=== PATIENT | female | born 1945 | race African-American/Black ===

== ENCOUNTER 2020-01-19 04:37 | Day surgery (SDC) | payer OTHER, BC ==
--- OUTSIDE RECORDS SUMMARY | 2020-01-18 10:39 | XMS ---
:1945 [facility] Care Team Providers Name Role Phone Jose Olson Unavailable Jose Olson Unavailable Re-disclosure Warning The records that you are about to access may contain information from federally- assisted alcohol or drug abuse programs. If such information is present, then the following federally mandated warning applies: This information has been disclosed to you from records protected by federal confidentiality rules (42 CFR part 2). The federal rules prohibit you from making any further disclosure of this information unless further disclosure is expressly permitted by the written consent of the person to whom it pertains or as otherwise permitted by 42 CFR part 2. A general authorization for the release of medical or other information is NOT sufficient for this purpose. The Federal rules restrict any use of the information to criminally investigate or prosecute any alcohol or drug abuse patient.The records that you are about to access may contain highly sensitive health information, the redisclosure of which is protected by Article 27-F of the [facility] Public Health law. If you continue you may haveaccess to information: Regarding HIV / AIDS; Provided by facilities licensed or operated by the [facility] Office of Mental Health; or Provided by the [facility] Office for People With Developmental Disabilities. If such information is present, then the following [facility] mandated warning applies: This information has been disclosed to you from confidential records which are protected by state law. State law prohibits you from making any further disclosure of this information without the specific written consent of the person to whom it pertains, or as otherwise permitted by law. Any unauthorized further disclosure in violation of state law may result in a fine or skilled nursing sentence or both. A general authorization for the release of medical or other information is NOT sufficient authorization for further disclosure. Encounters Encounter Providers Location Date Indications Data Source(s ) Attender: Jose 01/10/2020 [facility] ([facility] 12:00:00 AM EDT [facility]) Office Medications Medication Brand Start Product Dose Route Administrative Pharmacy [facility] Indications Reaction Description Data Name Date Form Instructions Instructions Source(s) gabapentin GABAPE complet GABAPEN TIN MED[facility] ( GABAPENTIN: NTIN:2 2019 ed [facility] [id number] 12:00: Medical, 00 AM PC) EDT SYNTHROID: complet SYNTHROID MED[facility] ( 2019 ed [facility] 12:00: Medical, 00 AM PC) EDT CRESTOR: complet CRESTOR MED GEN ( 2019 ed [facility] 12:00: Medical, 00 AM PC) EDT Insurance Providers Payer name Policy type Policy ID Covered Covered green party's Policy P gordo / Coverage green party ID relationship to Meredith Inf ormation type meredith MEDICARE [id number] SP [id number] [id number] [facility] [id number] SP [id number] [place] [id number] 1 [id number] [place] [id number] 1 [id number] PART B [facility] MEDICARE [id number] SP [id number] A Problems, Conditions, and Diagnoses Code Display Name Description Problem Type Effective Dates Data Source(s) M47.816 Spondylosis SPONDYLOSIS Problem 01/10/2020 [facility] 12[facility]:00 AM EDT [facility], myelopathy or MYELOPATHY OR PC) radiculopathy, RADICULOPATHY, lumbar region LUMBAR REGION Surgeries/Procedures Procedure Description Date Indications Data Source(s) Documentation of current 01/10/2020 MED [facility] ([facility] ([facility]) 12:00:00 AM EDT ALA[facility] Jaramillo) Documentation of current 01/10/2020 [facility] ([facility]) 12:00:00 AM EDT ALAINA Jaramillo) Documentation of current 01/10/2020 [facility] ([facility]) 12:00:00 AM EDT ALAINA Jaramillo) Documentation of current 01/10/2020 [facility] ([facility]) 12:00:00 AM EDT [facility] ) Documentation of current 01/10/2020 MED [facility] ([facility]) 12:00:00 AM EDT [facility] ) OFFICE OUTPATIENT VISIT 01/10/2020 [facility] EN ([facility] MINUTES 12:00:00 AM EDT [facility]) Social History Code Duration Value Status Description Data Source(s ) Smoking 01/10/2020 Born: Adrian completed Born: Adrian MEDGEN ( [facility] 12:00:00 AM EDT Current smoker Current smoker - 1 [facility]) -1 pack daily pack daily No No alcohol No alcohol No drugs drugs Smoking 01/10/2020 Unknown if ever completed Unknown if ever [facility]G EN ([facility] 12:00:00 AM EDT smoked smoked [facility], ) Vital Signs ID Date Data Source UNK Name Value Range Interpretation Code Description Data Source(s) Heart rate 79 /min 79 /min MED[facility] ([facility]) Respiratory rate 15 /min 15 /min [facility] ( [facility]) Inhaled oxygen 99 % 99 % MED[facility] ([facility]) Body mass index 33.3 kg/m2 33.3 kg/m2 MEDGEN (S (BMI) [Ratio] [facility]) Diastolic blood 80 mm[Hg] 80 mm[Hg] MEDGEN (S t pressure [facility]) Systolic blood 130 mm[Hg] 130 mm[Hg] MED[facility] ([facility]) Body weight 216 lb 216 lb MED[facility] ([facility]) Body height 67.5 in 67.5 in MED[facility] ([facility])
[2020-01-18 18:23] VITALS: BMI 33.6
--- NOTE | 2020-01-18 22:01 | PROC ---
Procedure Note Procedure: Pre procedure Diagnosis: Lumbar Spondylosis Post Procedure Diagnosis: same Anesthesia: Local Procedure Performed: Right and Left L3 L4 L5 Medial Branch Blocks under Fluoroscopic Guidance Procedure: After the risks and benefits were explained, informed consent was obtained. The patient was then taken to the procedure room and positioned prone on the procedure table. Time out was performed. The region overlying the appropriate vertebral bodies was identified using fluoroscopy. The skin was prepped and draped in the usual sterile fashion. The skin and soft tissues were anesthetized using 1% lidocaine. Using fluoroscopic guidance, 22 gauge 3.5 inch spinal needles were then introduced to the juncture of the superior articular processes and the transverse processes of the RIGHT L3, L4, and L5 medial branches are located. Omnipaque 180 confirmed appropriate needle placement. There was no epidural or vascular flow observed. .75% bupivacaine was drawn into a syringe. 0.5cc of this solution was then injected at each level. The same procedure was repeated on the LEFT side at the same levels. The patient tolerated the procedure well and there were no complications. The patient was taken to the post procedure recovery area in good condition. Vital signs remained stable before, and after the procedure. The patient was given oral follow-up instructions.The patient was givena follow up appointment with me in the near future. Jose Olson D.O.
--- OUTSIDE RECORDS SUMMARY | 2020-01-19 04:41 | XMS ---
:1945 Author [facility] Care Team Providers Name Role Phone Jose [...] is protected by Article 27-F of the [facility] Public Health law. If you continue you may haveaccess to information: Regarding HIV / AIDS; Provided by facilities licensed or operated by the [facility] Office of Mental Health; or Provided by the [facility] Office for People With Developmental Disabilities. If such information is present, then the following [facility] mandated warning applies: This information has [...] law may result in a fine or chcf sentence or both. A general authorization for the release of medical or other information is NOT sufficient authorization for further disclosure. Encounters Encounter Providers Location Date Indications Data Source(s ) Attender: Jose 01/10/2020 [facility] ([facility] 12:00:00 AM EDT [facility]) Office Medications Medication Brand Start Product Dose Route Administrative Pharmacy [facility] Indications Reaction Description Data Name Date Form Instructions Instructions Source(s) gabapentin GABAPE complet GABAPEN TIN [facility] ( GABAPENTIN: NTIN:2 2019 ed [facility] [id number] 12:00: Medical, 00 AM PC) EDT SYNTHROID: complet SYNTHROID MED[facility] ( 2019 ed [facility] 12:00: Medical, 00 AM PC) EDT CRESTOR: CRESTOR MED GEN ( 2019 [facility] 12:00: Medical, 00 AM PC) EDT Insurance Providers Payer name Policy type Policy ID Covered Covered alliance party's Policy P gordo / Coverage alliance party ID relationship to Meredith Inf ormation type meredith MEDICARE [id number] SP [id number] [facility] [id number] SP [id number] [place] [id number] 1 [id number] [place] [id number] 1 [id number] PART B [facility] MEDICARE [id number] SP [id number] A Problems, Conditions, and Diagnoses Code Display [...] GEN ([facility]) 12:00:00 AM [facility] ) Documentation of current 01/10/2020 MED [facility] ([facility]procedure) 12:00:00 AM EDT [facility], ) OFFICE OUTPATIENT VISIT 01/10/2020 MED[facility] EN ([facility] 25 MINUTES 12:00:00 AM EDT Medical, ) Results ID Date Data Source [id number] 01/15/2020 09:55:00 AM EDT [facility] Name Value Range Interpretation Description Data Sup porting Code Source(s) Document(s ) SARS [facility] coronavirus 2 RNA This lab was ordered by [facility] and reported by [facility]. Procedure Social History Code Duration Value Status Description Data Source(s ) Smoking 01/10/2020 Born: Adrian completed Born: Adrian MEDGEN ( [facility] 12:00:00 AM EDT Current smoker Current smoker - 1 [facility], ) -1 pack daily pack daily No No alcohol No alcohol No drugs drugs Smoking 01/10/2020 Unknown if ever completed Unknown if ever [facility] EN ([facility] 12:00:00 AM EDT smoked smoked Medical, ) Vital Signs ID Date Data Source UNK Name Value Range Interpretation Code Description Data Source(s) Heart rate 79 /min 79 /min MED[facility] ([facility]) Respiratory rate 15 /min 15 /min MED[facility] ( [facility]) Inhaled oxygen 99 % 99 % [facility] ([facility], ) Body mass index 33.3 kg/m2 33.3 kg/m2 MEDGEN (S t (BMI) [Ratio] [facility], ) Diastolic blood 80 mm[Hg] 80 mm[Hg] MEDGEN (S t pressure [facility]) Systolic blood 130 mm[Hg] 130 mm[Hg] MEDGEN ( pressure [facility]) Body weight 216 lb 216 lb MEDGEN ([facility]) Body height 67.5 in 67.5 in MED[facility] ([facility])
[2020-01-19] MEDS ORDERED: LIDOCAINE HCL 1% PRESERVATIVE FREE - 30ML VIAL IJ ONE (13:46)
[2020-01-19] MEDS ORDERED: BUPIVACAINE HCL/PF 0.75% 10 ML VIAL NR ONE (13:46)
[2020-01-19 14:45] VITALS: BP 154/74; PULSE 105; TEMP 97.5
== END 2020-01-19 14:45 | disposition home or self-care (01) ==
LOC: JASU-SURG 04:37
PROVIDERS: ATTEND Pain Medicine Pain Medicine
PROC: 3E0T33Z Introduction of Anti-inflammatory into Peripheral Nerves and Plexi, Percutaneous Approach (ICD-10-PCS; 2020-01-19)
PROC: 3E0T3BZ Introduction of Anesthetic Agent into Peripheral Nerves and Plexi, Percutaneous Approach (ICD-10-PCS; principal; 2020-01-19 13:00)
DX: M47.816 Spondylosis without myelopathy or radiculopathy, lumbar region (principal); M54.5 Low back pain
CPT/HCPCS: 76000-TC-FY

== ENCOUNTER 2020-07-09 14:11 | Emergency (ER) | payer OTHER, BC ==
[2020-07-09 14:40] VITALS: BMI 34.4
[2020-07-09] MEDS ORDERED: ONDANSETRON 4 MG/2 ML VIAL IVPUSH ONE (14:51)
[2020-07-09] MEDS ORDERED: ACETAMINOPHEN 1000 MG/100 ML VIAL (NON FORMULARY) IVPB ONE (14:54)
[2020-07-09] MEDS ORDERED: ONDANSETRON 4 MG/2 ML VIAL ONE (15:03)
[2020-07-09] MEDS ORDERED: ACETAMINOPHEN INJECTION 100 ML IVPB ONE (15:03)
[2020-07-09 15:56] LABS: BASO % 0.3 % (0-2.0); EOS % 0.5 % (0-4.5); HEMATOCRIT 41.7 % (32.4-45.2); HEMOGLOBIN 13.5 GM/dL (10.7-15.3); LYMPH % 9.8 % (8-40); MCH 28.6 pg (25.7-33.7); MCHC 32.4 g/dl (32.0-36.0); MEAN CELL VOLUME 88.3 fl (80-96); MEAN PLT VOLUME 10.8 fl (7.5-11.1); MONO % 4.1 % (3.8-10.2); NEUT % 85.3 % (42.8-82.8); PLATELET COUNT 226 K/MM3 (134-434); RBC 4.72 M/mm3 (3.60-5.2); RDW 14.2 % (11.6-15.6); WHITE BLOOD COUNT 11.7 K/mm3 (4.0-10.0)
[2020-07-09 16:03] LABS: INR 1.07 (0.83-1.09); PROTHROMBIN TIME (PATIENT) 12.9 SEC (9.7-13.0)
[2020-07-09 16:06] LABS: ACTIVATED PTT 32.8 SECONDS (25.2-36.5)
[2020-07-09 16:14] LABS: POTASSIUM 3.9 mmol/L (3.5-5.1)
[2020-07-09 16:16] LABS: CALCIUM 9.4 mg/dL (8.5-10.1)
[2020-07-09 16:17] LABS: ALBUMIN 3.8 g/dl (3.4-5.0); BLOOD UREA NITROGEN 10.7 mg/dL (7-18)
[2020-07-09 16:20] LABS: CREATININE 0.9 mg/dL (0.55-1.3)
[2020-07-09 16:21] LABS: BILIRUBIN,TOTAL 0.5 mg/dL (0.2-1)
[2020-07-09 16:22] LABS: TOT PROT 7.8 g/dl (6.4-8.2)
[2020-07-09 20:37] LABS: EPI CELLS 18 /uL (0-25.1); HYALINE CASTS 1 /uL (0-3.1); URINE APPEARANCE CLEAR; URINE BACTERIA 1480 /uL (0-1359); URINE BILIRUBIN NEGATIVE (NEGATIVE); URINE COLOR YELLOW; URINE GLUCOSE (UA) 3+ (NEGATIVE); URINE KETONE NEGATIVE (NEGATIVE); URINE LEUK ESTERASE NEGATIVE (NEGATIVE); URINE NITRITE NEGATIVE (NEGATIVE); URINE PROTEIN 1+ (NEGATIVE); URINE RBC 14 /uL (0-23.9); URINE WBC 4 /uL (0-25.8)
[2020-07-09 21:01] VITALS: BP 115/52; PULSE 89; TEMP 98.4
== END 2020-07-09 23:04 | disposition home or self-care (01) ==
LOC: JER 14:11
PROC: 3E033GC Introduction of Other Therapeutic Substance into Peripheral Vein, Percutaneous Approach (ICD-10-PCS; principal; 2020-07-09)
DX: K56.7 Ileus, unspecified (principal)
CPT/HCPCS: 36415; 74177-TC; 80053; 81003; 83605; 85025; 85610; 85730; 86850; 86900; 86901; 99285-25; J0131; Q9967

== ENCOUNTER 2020-08-15 04:16 | Day surgery (SDC) | payer OTHER, BC ==
[2020-08-13 14:59] VITALS: BMI 32.4
[2020-08-15] MEDS ORDERED: PROPOFOL 20 ML ONE ×2 (08:04)
[2020-08-15] MEDS ORDERED: EPINEPHrine/PF 1 MG/1 ML (1:1,000) AMPULE ONE (08:26)
[2020-08-15] MEDS ORDERED: EPINEPHrine 1:10,000 (P-F SYR) 1 MG/10 ML DISP.SYRIN ONE (08:27)
[2020-08-15] MEDS ORDERED: ONDANSETRON 4 MG/2 ML VIAL ONE (09:32)
[2020-08-15] MEDS ORDERED: ONDANSETRON 4 MG/2 ML VIAL IVPUSH ONE (09:40)
[2020-08-15] MEDS ORDERED: DEXAMETHASONE SOD PHOSPHATE 10 MG/1 ML VIAL ONE (09:55)
[2020-08-15] MEDS ORDERED: DEXAMETHASONE SOD PHOSPHATE 4 MG/1 ML VIAL IVPUSH ONE (10:00)
[2020-08-15 11:57] VITALS: BP 130/54; PULSE 73
[2020-08-15] MEDS ORDERED: LACTATED RINGERS SOLUTION 1,000 ML IV SCH (12:00)
[2020-08-15 12:43] VITALS: TEMP 98.6
== END 2020-08-15 11:43 | disposition home or self-care (01) ==
LOC: JASU-ENDO 04:16
PROVIDERS: ATTEND Internal Medicine Gastroenterology
PROC: 0DBM8ZX Excision of Descending Colon, Via Natural or Artificial Opening Endoscopic, Diagnostic (ICD-10-PCS; 2020-08-15)
PROC: 0DBL8ZX Excision of Transverse Colon, Via Natural or Artificial Opening Endoscopic, Diagnostic (ICD-10-PCS; 2020-08-15)
PROC: 3E0H8KZ Introduction of Other Diagnostic Substance into Lower GI, Via Natural or Artificial Opening Endoscopic (ICD-10-PCS; 2020-08-15)
PROC: 0DBK8ZX Excision of Ascending Colon, Via Natural or Artificial Opening Endoscopic, Diagnostic (ICD-10-PCS; principal; 2020-08-15 08:13)
DX: D12.2 Benign neoplasm of ascending colon (principal); D12.3 Benign neoplasm of transverse colon; D12.4 Benign neoplasm of descending colon; K64.8 Other hemorrhoids; K57.30 Diverticulosis of large intestine without perforation or abscess without bleeding; R93.3 Abnormal findings on diagnostic imaging of other parts of digestive tract
CPT/HCPCS: 82962; 88305-TC

== ENCOUNTER 2022-05-01 11:49 | Emergency (ER) | payer OTHER, BC ==
[2022-05-01 11:56] VITALS: BP 148/78; PULSE 92; RESP 18; TEMP 98.8; BMI 28.1
[2022-05-01] MEDS ORDERED: KETOROLAC TROMETHAMINE 30 MG/1 ML VIAL IM ONE ×2 (12:50→13:01)
[2022-05-01] MEDS ORDERED: LIDOCAINE 5% TOPICAL PATCH TP ONE (12:50)
[2022-05-01] MEDS ORDERED: LIDOCAINE 5% TOPICAL PATCH ONE (12:56)
[2022-05-01] MEDS ORDERED: KETOROLAC TROMETHAMINE 15 MG/ML VIAL ONE (12:56)
[2022-05-01] MEDS ORDERED: LIDOCAINE PATCH REMOVAL MC SCH (22:00)
== END 2022-05-01 16:48 | disposition home or self-care (01) ==
LOC: JER 11:49
PROC: 3E023GC Introduction of Other Therapeutic Substance into Muscle, Percutaneous Approach (ICD-10-PCS; principal; 2022-05-01)
DX: M54.2 Cervicalgia (principal)
CPT/HCPCS: 72125-TC; 99284-25

== ENCOUNTER 2022-09-04 03:56 | Day surgery (SDC) | payer OTHER, BC ==
[2022-08-28 14:57] VITALS: BMI 29.9
[~2022-09-04 03:56] MED LIST: DEXAMETHASONE SOD PHOSPHATE 10 MG/1 ML VIAL IM ONE; IOHEXOL 180 MG/1 ML ML IJ ONE; LIDOCAINE HCL 1% PRESERVATIVE FREE - 30ML VIAL IJ ONE
[2022-09-04] MEDS ORDERED: ACETAMINOPHEN 500 MG TABLET (FP) PO PRN (11:07)
[2022-09-04] MEDS ORDERED: DEXAMETHASONE SOD PHOSPHATE 10 MG/1 ML VIAL IM ONE (12:03)
[2022-09-04] MEDS ORDERED: LIDOCAINE HCL 1% PRESERVATIVE FREE - 30ML VIAL IJ ONE ×4 (12:03)
[2022-09-04 12:53] VITALS: BP 139/68; PULSE 70; RESP 18; TEMP 98
== END 2022-09-04 13:10 | disposition home or self-care (01) ==
LOC: JASU-SURG 03:56
PROVIDERS: ATTEND Pain Medicine Pain Medicine
PROC: 3E0R3BZ Introduction of Anesthetic Agent into Spinal Canal, Percutaneous Approach (ICD-10-PCS; 2022-09-04)
PROC: 3E0R33Z Introduction of Anti-inflammatory into Spinal Canal, Percutaneous Approach (ICD-10-PCS; principal; 2022-09-04 12:15)
DX: M48.061 Spinal stenosis, lumbar region without neurogenic claudication (principal); M54.16 Radiculopathy, lumbar region
CPT/HCPCS: 76000-TC-FY; J1100

== ENCOUNTER 2022-09-04 15:37 | Emergency (ER) | payer OTHER, BC ==
[2022-09-04 15:49] VITALS: BP 149/78; PULSE 83; RESP 17; TEMP 98
[2022-09-04] MEDS ORDERED: SODIUM CHLORIDE 0.9% 1000 ML INFUS.BAG IV ONE (17:18)
[2022-09-04 18:30] LABS: HEMATOCRIT 40.8 % (32.4-45.2); HEMOGLOBIN 13.5 GM/dL (10.7-15.3); MCH 28.8 pg (25.7-33.7); MCHC 33.2 g/dl (32.0-36.0); MEAN CELL VOLUME 86.7 fl (80-96); MEAN PLT VOLUME 9.8 fl (7.5-11.1); PLATELET COUNT 220 10^3/uL (134-434); RBC 4.71 M/mm3 (3.60-5.2); RDW 14.7 % (11.6-15.6); VENOUS BASE EXCESS -4.2 mmol/L (-2-2); VENOUS O2 SATURATION 37.4 % (70-80); VENOUS PCO2 45.8 mmHg (38-52); VENOUS PH 7.304 (7.310-7.410); WHITE BLOOD COUNT 11.1 K/mm3 (4.0-10.0)
[2022-09-04 18:49] LABS: POTASSIUM 5.1 mmol/L (3.5-5.1)
[2022-09-04 18:51] LABS: ALBUMIN 3.8 g/dl (3.4-5.0); CALCIUM 9.4 mg/dL (8.5-10.1)
[2022-09-04 18:52] LABS: BLOOD UREA NITROGEN 18.4 mg/dL (7-18); MAGNESIUM 2.1 mg/dL (1.8-2.4)
[2022-09-04 18:54] LABS: CREATININE 1.3 mg/dL (0.55-1.3)
[2022-09-04 18:56] LABS: BILIRUBIN,TOTAL 0.3 mg/dL (0.2-1); TOT PROT 7.8 g/dl (6.4-8.2)
[2022-09-04] MEDS ORDERED: INSULIN (NOVOLOG) ASPART 100 UNITS/ML 10ML VIAL SQ ONE (19:43)
[2022-09-04 20:33] LABS: EPI CELLS 17 /uL (0-25.1); HYALINE CASTS 0 /uL (0-3.1); PH,URINE 5.5 (5.0-8.0); URINE APPEARANCE CLEAR; URINE BACTERIA 121 /uL (0-1359); URINE BILIRUBIN NEGATIVE (NEGATIVE); URINE COLOR YELLOW; URINE GLUCOSE (UA) 3+ (NEGATIVE); URINE KETONE NEGATIVE (NEGATIVE); URINE LEUK ESTERASE NEGATIVE (NEGATIVE); URINE NITRITE NEGATIVE (NEGATIVE); URINE PROTEIN TRACE (NEGATIVE); URINE RBC 7 /uL (0-23.9); URINE UROBILINOGEN 0.2 mg/dL (0.2-1.0); URINE WBC 1 /uL (0-25.8)
== END 2022-09-04 21:02 | disposition home or self-care (01) ==
LOC: JER 15:37
PROC: 3E013VG Introduction of Insulin into Subcutaneous Tissue, Percutaneous Approach (ICD-10-PCS; principal; 2022-09-04)
DX: E11.65 Type 2 diabetes mellitus with hyperglycemia (principal); Z20.822 Contact with and (suspected) exposure to COVID-19
CPT/HCPCS: 0241U-QW; 36415; 71045-TC-FY; 80053; 81003; 82010; 82803; 82962; 83735; 85025; 87086; 99284-25

== ENCOUNTER 2023-07-11 17:40 | Emergency (ER) | payer OTHER, BC ==
[2023-07-11 18:05] VITALS: RESP 18; BMI 29.9
[2023-07-11] MEDS ORDERED: ACETAMINOPHEN INJECTION 100 ML IVPB ONE (18:46)
[2023-07-11 19:45] LABS: BASO % 0.7 % (0-2.0); EOS % 0.4 % (0-4.5); HEMATOCRIT 41.8 % (32.4-45.2); HEMOGLOBIN 13.6 GM/dL (10.7-15.3); MCHC 32.4 g/dl (32.0-36.0); MEAN CELL VOLUME 89.7 fl (80-96); MONO % 5.5 % (3.8-10.2); NEUT % 86.4 % (42.8-82.8); PLATELET COUNT 224 10^3/uL (134-434); RBC 4.67 M/mm3 (3.60-5.2); RDW 13.7 % (11.6-15.6); WHITE BLOOD COUNT 14.4 K/mm3 (4.0-10.0)
[2023-07-11 20:04] LABS: POTASSIUM 5.5 mmol/L (3.5-5.1)
[2023-07-11 20:06] LABS: ALBUMIN 3.4 g/dl (3.4-5.0); BLOOD UREA NITROGEN 11.3 mg/dL (7-18); CALCIUM 8.9 mg/dL (8.5-10.1)
[2023-07-11 20:09] LABS: CREATININE 1.3 mg/dL (0.55-1.3)
[2023-07-11 20:11] LABS: BILIRUBIN,TOTAL 0.9 mg/dL (0.2-1); TOT PROT 7.4 g/dl (6.4-8.2)
[2023-07-11 20:13] LABS: N-TERMINAL BNP 176.3 pg/ml (5-450)
[2023-07-11] MEDS: ACETAMINOPHEN 1000 MG/100 ML BAG IVPB ONE (20:48)
[2023-07-11] MEDS: SODIUM CHLORIDE 0.9% 500 ML INFUS.BAG IV ONE (20:48)
[2023-07-11 20:49] LABS: VENOUS BASE EXCESS -1.4 mmol/L (-2-2); VENOUS O2 SATURATION 75.6 % (70-80); VENOUS PCO2 38.7 mmHg (38-52); VENOUS PH 7.395 (7.310-7.410)
[2023-07-11 21:22] VITALS: TEMP 99.1
[2023-07-11] MEDS ORDERED: ONDANSETRON 4 MG/2 ML VIAL ONE (21:40)
[2023-07-11] MEDS: ONDANSETRON 4 MG/2 ML VIAL IVPUSH ONE (21:50)
[2023-07-11] MEDS: PENICILLIN G BENZATHINE 1,200,000 UNIT/2 ML PFS IM ONE (23:15)
[2023-07-11 23:26] VITALS: BP 131/80; PULSE 87
== END 2023-07-11 23:26 | disposition home or self-care (01) ==
LOC: JER 17:40
PROC: 3E030NZ Introduction of Analgesics, Hypnotics, Sedatives into Peripheral Vein, Open Approach (ICD-10-PCS; principal; 2023-07-11)
PROC: 3E030GC Introduction of Other Therapeutic Substance into Peripheral Vein, Open Approach (ICD-10-PCS; 2023-07-11)
PROC: 3E02329 Introduction of Other Anti-infective into Muscle, Percutaneous Approach (ICD-10-PCS; 2023-07-11)
DX: R11.2 Nausea with vomiting, unspecified (principal); M79.10 Myalgia, unspecified site; R06.02 Shortness of breath; R10.9 Unspecified abdominal pain; R68.83 Chills (without fever); J02.0 Streptococcal pharyngitis; Z20.822 Contact with and (suspected) exposure to COVID-19
CPT/HCPCS: 0241U-QW; 36415; 71045-TC-FY; 80053; 82803; 82962; 83880; 84484; 85025; 87651; 93005; 93010; 99285-25; J0131

== ENCOUNTER 2024-09-21 05:32 | Day surgery (SDC) | payer OTHER, BC ==
[2024-09-20 09:46] VITALS: BMI 29.0
[2024-09-21] MEDS ORDERED: LIDOCAINE HCL/PF 1% SDV 5ML VIAL ONE (07:33)
[2024-09-21] MEDS ORDERED: ACETAMINOPHEN 500 MG TABLET (FP) PO PRN (08:48)
[2024-09-21 09:32] VITALS: BP 154/90; PULSE 63; RESP 20; TEMP 97.7
== END 2024-09-21 10:32 | disposition home or self-care (01) ==
LOC: JASU-SURG 05:32
PROVIDERS: ATTEND Pain Medicine Pain Medicine
PROC: 01HY3MZ Insertion of Neurostimulator Lead into Peripheral Nerve, Percutaneous Approach (ICD-10-PCS; principal; 2024-09-21 08:30)
DX: G89.4 Chronic pain syndrome (principal); M25.561 Pain in right knee
CPT/HCPCS: 64555; C1778